=== PATIENT | female | born 1990 | race African-American/Black ===

== ENCOUNTER 2016-06-03 05:49 | Emergency (ER) | payer OTHER ==
[~2016-06-03] VITALS: Ht 162.6 cm; Wt 112.5 kg
[~2016-06-03 05:49] MED LIST: IBUPROFEN600 MG ORAL; KEFLEX500 MG ORAL; PHENAZOPYRIDIN100 MG ORAL
[2016-06-03 06:05] VITALS: BP 120/88
[2016-06-03] MEDS ORDERED: AMOXICILLIN500 MG ORAL (06:23)
[2016-06-03] MEDS ORDERED: HYDROCODON-ACE1 EA15 ORAL (06:23)
--- NOTE | 2016-06-03 06:23 | Emergency Room Report ---
History of Present Illness General Chief Complaint: Toothache Source: Patient Present Illness HPI This is a 25-year-old female presents with chief complaint of toothache. She cracked her tooth about a week ago. Now she has severe pain in the left lower jaw. Pain is 9/10. Throbbing in nature. Worse with eating or drinking. Orajel helps but only lasted about 15 minutes. No other complaint. No swelling. Allergies: Coded Allergies: No Known Allergies (Unverified , 11/28/11) Patient History Past Medical History: see triage record, old chart reviewed Past Surgical History: none Pertinent Family History: none Social History: Denies: smoking Last Menstrual Period: I HAVE AN IUD, NOTHING CURRENTLY Now: No : 3 Para: 1 Immunizations: other Reviewed Nursing Documentation: PMH: Agreed, PSxH: Agreed Nursing Documentation-PMH Past Medical History: No Stated History Review of Systems Eye: Denies: blurred vision, eye pain ENT: Denies: ear pain, nose congestion, throat swelling Respiratory: Denies: cough, shortness of breath Cardiovascular: Denies: chest pain, palpitations Gastrointestinal: Denies: abdominal pain, diarrhea, nausea, vomiting Musculoskeletal: Denies: back pain, joint pain Skin: Denies: rash Neurological: Denies: headache, numbness Endocrine: Denies: increased thirst, increased urine Hematologic/Lymphatic: Denies: easy bruising All Other Systems: negative except mentioned in HPI Physical Exam Vital Signs Date Time Temp Pulse Resp B/P Pulse Ox O2 Delivery O2 Flow Rate FiO2 06/03/16 05:56 78 18 123/87 98 Room Air 06/03/16 06:05 98.4 vitals normal Sp02 EP Interpretation: reviewed, normal General Appearance: well appearing, no apparent distress, alert Head: normocephalic, atraumatic Eyes: bilateral eye EOMI, bilateral eye PERRL ENT: hearing grossly normal, normal pharynx, other - Left lower wisdom tooth: About a third is missing. No abscess. Tenderness with outpatient. Neck: full range of motion, supple, no meningismus Respiratory: chest non-tender, lungs clear, normal breath sounds Cardiovascular #1: regular rate, rhythm, no murmur Gastrointestinal: normal bowel sounds, non tender, no mass, no organomegaly, no bruit, non-distended Musculoskeletal: back normal, gait/station normal, normal range of motion Psychiatric: mood/affect normal Skin: warm/dry Procedures Additional Procedure Procedure Narrative Procedure: Dental block Indication: Toothache Description: I injected about 3 mL of 1% lidocaine with epinephrine into the inferior alveolar nerve. Patient is good pain control. No complication. Medical Decision Making Diagnostic Impression: Primary Impression: Toothache ER Course Patient presents with toothache. She may need a root canal versus tooth extraction. No evidence of abscess that can be in the. We'll discharge home. Last Vital Signs Date Time Temp Pulse Resp B/P Pulse Ox O2 Delivery O2 Flow Rate FiO2 06/03/16 06:05 98.4 88 17 120/88 99 Room Air Status: improved Disposition: HOME, SELF-CARE Condition: Stable Scripts Hydrocodone/Acetaminophen 5-325* (HYDROCODONE/ACETAMINOPHEN 5-325*) 1 Each Tablet 1 TAB ORAL Q6H Y for For Pain, #20 TAB 0 Refills Prov: ZEB GEORGES M.D. 06/03/16 Amoxicillin* (AMOXIL*) 500 Mg Capsule 500 MG ORAL THREE TIMES A DAY, #21 CAP Prov: ZEB GEORGES M.D. 06/03/16 Referrals: [facility]ERR[facility] (PCP) Patient Instructions: Dental Pain Additional Instructions: Keep the appointment with a dentist. Return for increasing pain, fever, or swelling. ZEB GEORGES M.D. Jun 03, 2016 06:23
[2016-06-03 06:30] VITALS: BP 120/88
== END 2016-06-03 06:30 | disposition home or self-care (01) ==
LOC: EMR 06:13
DX: K08.89 Other specified disorders of teeth and supporting structures (principal)
CPT/HCPCS: 64450

== ENCOUNTER 2016-09-07 23:03 | Emergency (ER) | payer OTHER ==
[~2016-09-07] VITALS: Ht 160 cm; Wt 110.7 kg
[~2016-09-07 23:03] MED LIST changes: +AMOXICILLIN500 MG ORAL; +HYDROCODON-ACE1 EA15 ORAL
[2016-09-07] MEDS ORDERED: HYDROCODON-ACE1 EA15 ORAL (23:44)
[2016-09-07] MEDS ORDERED: AMOXICILLIN500 MG ORAL (23:44)
--- NOTE | 2016-09-07 23:44 | Emergency Room Report ---
History of Present Illness General Chief Complaint: Toothache Source: Patient Present Illness Allergies: Coded Allergies: No Known Allergies (Unverified , 11/28/11) Patient History Past Medical History: see triage record, old chart reviewed Past Surgical History: none Pertinent Family History: none Social History: Denies: smoking Last Menstrual Period: 3 days ago Now: No Immunizations: UTD Reviewed Nursing Documentation: PMH: Agreed, PSxH: Agreed Nursing Documentation-PMH Past Medical History: No Stated History Review of Systems Eye: Denies: blurred vision, eye pain ENT: Denies: ear pain, nose congestion, throat swelling Respiratory: Denies: cough, shortness of breath Cardiovascular: Denies: chest pain, palpitations Gastrointestinal: Denies: abdominal pain, diarrhea, nausea, vomiting Musculoskeletal: Denies: back pain, joint pain Skin: Denies: rash Neurological: Denies: headache, numbness Endocrine: Denies: increased thirst, increased urine Hematologic/Lymphatic: Denies: easy bruising All Other Systems: negative except mentioned in HPI Physical Exam Vital Signs Date Time Temp Pulse Resp B/P Pulse Ox O2 Delivery O2 Flow Rate FiO2 09/07/16 23:19 98.1 68 16 135/87 98 Room Air vitals normal Sp02 EP Interpretation: reviewed, normal General Appearance: well appearing, no apparent distress, alert Head: normocephalic, atraumatic Eyes: bilateral eye EOMI, bilateral eye PERRL ENT: hearing grossly normal, normal pharynx, other - dental caries. No abscess. no trismus Neck: full range of motion, supple, no meningismus Respiratory: chest non-tender, lungs clear, normal breath sounds Cardiovascular #1: regular rate, rhythm, no murmur Gastrointestinal: normal bowel sounds, non tender, no mass, no organomegaly, no bruit, non-distended Musculoskeletal: back normal, gait/station normal, normal range of motion Psychiatric: mood/affect normal Skin: warm/dry Medical Decision Making Diagnostic Impression: Primary Impression: Toothache Additional Impression: Infected dental caries Last Vital Signs Date Time Temp Pulse Resp B/P Pulse Ox O2 Delivery O2 Flow Rate FiO2 09/07/16 23:19 98.1 68 16 135/87 98 Room Air Status: improved Disposition: HOME, SELF-CARE Condition: Stable Scripts Hydrocodone/Acetaminophen 5-325* (HYDROCODONE/ACETAMINOPHEN 5-325*) 1 Each Tablet 1 TAB ORAL Q6H Y for For Pain, #20 TAB 0 Refills Prov: ZEB GEORGES M.D. 09/07/16 Amoxicillin* (AMOXIL*) 500 Mg Capsule 500 MG ORAL EVERY 8 HOURS, #21 CAP Prov: ZEB GEORGES M.D. 09/07/16 Patient Instructions: Dental Pain Additional Instructions: Keep your appointment with your dentist. Return if worse. ZEB GEORGES M.D. Sep 07, 2016 23:44
--- NOTE | 2016-09-07 23:47 | Emergency Room Report ---
History of Present Illness General Chief Complaint: Toothache Source: Patient Present Illness HPI Is a 25-year-old female with no significant past medical history. She presents with dental pain for the last few days. Pain mostly on the left side but now the right side. No fever chills but no nausea vomiting. She made an appointment with a dentist for next week. No other complaint. Over-the- counter medication not helping. Allergies: Coded Allergies: No Known Allergies (Unverified , 11/28/11) Patient History Past Medical History: see triage record, old chart reviewed Past Surgical History: none Pertinent Family History: none Social History: Denies: smoking Last Menstrual Period: 3 days ago Now: No Immunizations: other Reviewed Nursing Documentation: PMH: Agreed, PSxH: Agreed Nursing Documentation-PMH Past Medical History: No Stated History Review of Systems Eye: Denies: blurred vision, eye pain ENT: Denies: ear pain, nose congestion, throat swelling Respiratory: Denies: cough, shortness of breath Cardiovascular: Denies: chest pain, palpitations Gastrointestinal: Denies: abdominal pain, diarrhea, nausea, vomiting Musculoskeletal: Denies: back pain, joint pain Skin: Denies: rash Neurological: Denies: headache, numbness Endocrine: Denies: increased thirst, increased urine Hematologic/Lymphatic: Denies: easy bruising All Other Systems: negative except mentioned in HPI Physical Exam Vital Signs Date Time Temp Pulse Resp B/P Pulse Ox O2 Delivery O2 Flow Rate FiO2 09/07/16 23:19 98.1 68 16 135/87 98 Room Air vitals normal Sp02 EP Interpretation: reviewed, normal General Appearance: well appearing, no apparent distress, alert Head: normocephalic, atraumatic Eyes: bilateral eye EOMI, bilateral eye PERRL ENT: hearing grossly normal, normal pharynx, other - Poor dentition. The right and left lower wisdom teeth are rotted. Percussive tenderness mostly on the right. No abscess. Neck: full range of motion, supple, no meningismus Respiratory: chest non-tender, lungs clear, normal breath sounds Cardiovascular #1: regular rate, rhythm, no murmur Gastrointestinal: normal bowel sounds, non tender, no mass, no organomegaly, no bruit, non-distended Musculoskeletal: back normal, gait/station normal, normal range of motion Psychiatric: mood/affect normal Skin: warm/dry Procedures Additional Procedure Procedure Narrative Procedure: Dental block Indication: Dental pain Description: I injected 2 mL of 1% lidocaine with epinephrine. I injected the inferior alveolar ridge. Has had good pain relief. Complication. Patient tolerated procedure without any issue. Medical Decision Making Diagnostic Impression: Primary Impression: Toothache Additional Impression: Infected dental caries ER Course Patient with dental infection. We'll discharge home. No evidence of abscess that can be I&D. Last Vital Signs Date Time Temp Pulse Resp B/P Pulse Ox O2 Delivery O2 Flow Rate FiO2 09/07/16 23:19 98.1 68 16 135/87 98 Room Air Disposition: HOME, SELF-CARE Condition: Stable Scripts Hydrocodone/Acetaminophen 5-325* (HYDROCODONE/ACETAMINOPHEN 5-325*) 1 Each Tablet 1 TAB ORAL Q6H Y for For Pain, #20 TAB 0 Refills Prov: ZEB GEORGES M.D. 09/07/16 Amoxicillin* (AMOXIL*) 500 Mg Capsule 500 MG ORAL EVERY 8 HOURS, #21 CAP Prov: ZEB GEORGES M.D. 09/07/16 Patient Instructions: Dental Pain Additional Instructions: Keep your appointment with your dentist. Return if worse. ZEB GEORGES M.D. Sep 07, 2016 23:47
[2016-09-07 23:53] VITALS: BP 135/87
[2016-09-07 23:55] VITALS: BP 1/1
== END 2016-09-07 23:59 | disposition home or self-care (01) ==
LOC: EMR 23:56
DX: K02.9 Dental caries, unspecified (principal)
CPT/HCPCS: 99284

== ENCOUNTER 2016-10-06 08:47 | Emergency (ER) | payer OTHER ==
[~2016-10-06] VITALS: Ht 162.6 cm; Wt 117.9 kg
[2016-10-06 09:15] VITALS: BP 117/80
[2016-10-06] MEDS ORDERED: CLOTRIMAZOLE15 GM TOPIC (09:54)
[2016-10-06] MEDS ORDERED: DIPHENHYDRAMINE25 M1 ORAL (09:54)
[2016-10-06 10:07] VITALS: BP 117/80
--- NOTE | 2016-10-06 15:00 | Emergency Room Report ---
History of Present Illness General Chief Complaint: Skin Rash/Abscess Source: Patient Present Illness HPI 25-year-old female presents ED complaining of rash x3 days. Patient notes multiple itchy bumps all of her body. Denies any pain. Denies fevers or chills. Denies any known food or drug allergies. Denies any sick contacts or recent travel. No other aggravating relieving factors. Denies any associated symptoms Allergies: Coded Allergies: No Known Allergies (Unverified , 11/28/11) Patient History Past Medical History: none Past Surgical History: none Pertinent Family History: none Social History: Denies: alcohol use, drug use, smoking Now: No Immunizations: UTD Reviewed Nursing Documentation: PMH: Agreed, PSxH: Agreed Nursing Documentation-PMH Past Medical History: No Stated History Review of Systems All Other Systems: negative except mentioned in HPI Physical Exam Vital Signs Date Time Temp Pulse Resp B/P Pulse Ox O2 Delivery O2 Flow Rate FiO2 10/06/16 09:04 98.1 70 20 117/80 100 Room Air Sp02 EP Interpretation: reviewed, normal General Appearance: no apparent distress, alert, GCS 15, non-toxic, obese Head: normocephalic Eyes: bilateral eye PERRL, bilateral eye normal inspection ENT: normal ENT inspection Neck: normal inspection Respiratory: normal inspection Cardiovascular #1: normal inspection Gastrointestinal: normal inspection Rectal: deferred Genitourinary: no CVA tenderness Musculoskeletal: normal inspection Neurologic: alert, oriented x3, responsive, motor strength/tone normal, sensory intact, speech normal Psychiatric: judgement/insight normal, memory normal, mood/affect normal, no suicidal/homicidal ideation Skin: rash - multiple round lesions with raised edges, central clearing. nonerythematous. no discharge Lymphatic: normal inspection Medical Decision Making Diagnostic Impression: Primary Impression: Rash and other nonspecific skin eruption ER Course Hospital Course 25-year-old female presents to ED with rash to body Differential diagnoses include: Cellulitis, dermatitis, insect bite, abscess Clinical course Patient placed on stretcher. After initial history, physical exam reveals a young female in no acute distress. On exam there are multiple macular circular lesions on the body. Raised edges with central clearing. Consistent with ringworm Diagnosis - rash stable and discharged to home with prescription for clotrimazole, benedryl. Instructed to followup with PMD. Instructed return to ED if symptoms recur or worsen Last Vital Signs Date Time Temp Pulse Resp B/P Pulse Ox O2 Delivery O2 Flow Rate FiO2 10/06/16 10:07 98.1 78 20 117/80 100 Room Air Status: improved Disposition: HOME, SELF-CARE Condition: Stable Scripts Clotrimazole* (LOTRIMIN*) 15 Gm Cream..g. 1 APPLIC TOPIC TWICE A DAY, #15 GM Prov: MYNOR JHAVERI M.D. 10/06/16 Diphenhydramine Hcl* (DIPHENHYDRAMINE HCL*) 25 Mg Capsule 25 MG ORAL Q6H Y for Itching, #30 CAP 0 Refills Prov: MYNOR JHAVERI M.D. 10/06/16 Referrals: [facility],REFERRIN (PCP) Patient Instructions: Body Ringworm MYNOR JHAVERI M.D. Oct 06, 2016 15:00
== END 2016-10-06 10:09 | disposition home or self-care (01) ==
LOC: EMR 09:16
DX: R21 Rash and other nonspecific skin eruption (principal)
CPT/HCPCS: 99284

== ENCOUNTER 2016-10-14 02:41 | Emergency (ER) | payer OTHER ==
[~2016-10-14] VITALS: Ht 162.6 cm; Wt 115.7 kg
[~2016-10-14 02:41] MED LIST changes: +CLOTRIMAZOLE15 GM TOPIC; +DIPHENHYDRAMINE25 M1 ORAL
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
[2016-10-14] MEDS ORDERED: IBUPROFEN600 MG ORAL (03:40)
[2016-10-14 03:43] VITALS: BP 117/81
[2016-10-14 03:45] VITALS: BP 120/84
--- NOTE | 2016-10-14 08:29 | Diagnostic Imaging Report ---
Indications: Right knee pain Technique: 3 views of the right knee Findings: Comparison: None No fracture, dislocation, lytic destruction, periosteal reaction, joint space widening or effusion, surrounding soft tissue abnormality, or other acute changes demonstrated. No deformity, alignment abnormality, arthritic change, soft tissue calcification, or other chronic changes demonstrated. IMPRESSION: Negative right knee series.
[2016-10-14] MEDS ORDERED: NORCO 5-325 TA1 EAC1 ORAL (20:23)
== END 2016-10-14 03:43 | disposition home or self-care (01) ==
LOC: EMR 03:15
DX: S83.91XA Sprain of unspecified site of right knee, initial encounter (principal); Y04.0XXA Assault by unarmed brawl or fight, initial encounter; Y92.89 Other specified places as the place of occurrence of the external cause
CPT/HCPCS: 99283

== ENCOUNTER 2016-10-14 18:45 | Emergency (ER) | payer OTHER ==
[~2016-10-14] VITALS: Ht 162.6 cm; Wt 115.7 kg
[2016-10-14 19:45] VITALS: BP 118/71
[2016-10-14] MEDS ORDERED: NORCO 5-325 TA1 EAC1 ORAL (20:23)
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
[2016-10-14 20:45] VITALS: BP 125/85
== END 2016-10-14 20:45 | disposition home or self-care (01) ==
LOC: EMR 19:50
DX: M25.561 Pain in right knee (principal); M79.89 Other specified soft tissue disorders
CPT/HCPCS: 99283

== ENCOUNTER 2017-10-06 15:53 | Emergency (ER) | payer OTHER ==
[~2017-10-06] VITALS: Ht 162.6 cm; Wt 120.7 kg
[~2017-10-06 15:53] MED LIST changes: +NORCO 5-325 TA1 EAC1 ORAL
[2017-10-06] MEDS ORDERED: NKM (16:01)
[2017-10-06 16:07] VITALS: BP 113/64
[2017-10-06] MEDS ORDERED: TYLENOL EXTRA500 MG ORAL (16:25)
--- NOTE | 2017-10-06 16:25 | Emergency Room Report ---
History of Present Illness General Chief Complaint: Toothache Source: Patient Present Illness HPI 26-year-old female patient presents ER complaining of tooth pain for the past few days. patient is 32 weeks . Reports that she was seen by dentist yesterday who referred her to a oral surgeon, states she has appointment with oral surgeon tomorrow. States that the dentist did not prescribe her any antibiotics or pain medications. patient states she has not taken anything for pain. Denies fever, chest pain, shortness of breath, drainage. Denies hearing loss, vertigo, other acute symptoms. reports she was able to contact her EXTRACTION OPERATOR who stated that it was okay for her to take antibiotics. denies dysuria, hematuria. Denies abdominal pain. Allergies: Coded Allergies: No Known Allergies (Unverified , 10/14/16) Patient History Past Medical History: see triage record Now: Yes : 4 Para: 1 Reviewed Nursing Documentation: PMH: Agreed; PSxH: Agreed Nursing Documentation-PMH Past Medical History: No Stated History Review of Systems All Other Systems: negative except mentioned in HPI Physical Exam Vital Signs Date Time Temp Pulse Resp B/P (MAP) Pulse Ox O2 Delivery O2 Flow Rate FiO2 10/06/17 15:58 98.6 98 20 113/64 97 Room Air 98.6 Sp02 EP Interpretation: reviewed, normal General Appearance: well appearing, no apparent distress, alert, GCS 15, non- toxic Head: normocephalic, atraumatic, other - no facial swelling Eyes: bilateral eye normal inspection, bilateral eye PERRL ENT: hearing grossly normal, normal pharynx, no angioedema, normal voice, TMs + canals normal, uvula midline, moist mucus membranes, other - tooth #32 broken , no erythema or edema, no pus, no gum swelling, no drainage; multiple caries noted Neck: full range of motion Respiratory: lungs clear, normal breath sounds, no rhonchi, no respiratory distress, no accessory muscle use, no wheezing, speaking full sentences Cardiovascular #1: regular rate, rhythm, no edema Neurologic: alert, oriented x3, responsive, motor strength/tone normal, sensory intact Psychiatric: mood/affect normal Skin: no rash Medical Decision Making PA Attestation Dr. Ellington is my supervising Physician whom patient management has been discussed with. Diagnostic Impression: Primary Impression: Toothache ER Course Pt. presents to the ED c/o dental pain.. Ddx considered but are not limited to cellulitis, abscess, dental caries, gingivitis. Does not require imaging at this time. Vital signs: are WNL, pt. is afebrile ED INTERVENTIONS: Patient is 32 weeks , states she contacted her EXTRACTION OPERATOR, should be reported provider by EXTRACTION OPERATOR. States that she is appropriate for Tylenol for pain and postprocedure antibiotics. Nontoxic appearing, speaking full sentences, no active draining, mild edema, no trismus or vision changes. bilateral ears clear, no erythema or edema, no effusion. No visible abscess requiring drainage at this time. Physical exam shows tooth #32 broken, no erythema or edema, no signs of infection requiring antibiotics at this time. Informed patient because she is she is only able to take Tylenol for pain symptoms. Will provide prescription for Tylenol. Instructed to follow-up with oral surgeon tomorrow at scheduled appointment. follow-up with EXTRACTION OPERATOR. F/u with PCP and dentist for further treatment. DISCHARGE: -Rx provided for Tylenol At this time pt. is stable for d/c to home. Patient is resting comfortably, in no acute distress, nontoxic appearing, talking and smiling without difficulty. Will provide printed patient care instructions and any necessary prescriptions. Care plan and follow up instructions have been discussed with the patient prior to discharge. Patient instructed to follow-up with primary care provider in 2 - 3 days. Followup with dentist. Patient questions asked and answered. Patient reports understanding and agreement to treatment plan. ER precautions given. Patient instructed to return to ER immediately for any new or worsening of symptoms including but not limited to fever, worsening of pain symptoms, worsening of erythema, red streaking. - Please note that this Emergency Department Report was dictated using [employer] technology software, occasionally this can lead to erroneous entry secondary to interpretation by the dictation equipment. Last Vital Signs Date Time Temp Pulse Resp B/P (MAP) Pulse Ox O2 Delivery O2 Flow Rate FiO2 10/06/17 16:07 98.6 84 20 113/64 97 Room Air 98.6 Disposition: HOME, SELF-CARE Condition: Stable Scripts Acetaminophen* (TYLENOL EXTRA STRENGTH*) 500 Mg Tablet 500 MG ORAL Q8H PRN for Prn Headache/Temp > 101, #30 TAB 0 Refills Prov: LuisaAyo 10/06/17 Patient Instructions: Dental Pain Additional Instructions: Follow-up with oral surgeon tomorrow at scheduled appointment. Follow-up with EXTRACTION OPERATOR. F/u with PCP and dentist for further treatment. Followup with primary care provider in 3 -5 days. Take medications as directed. Do not take any medications for pain besides Tylenol Patient questions asked and answered. ER precautions given, patient instructed to return to ER immediately for any new or worsening of symptoms. Ayo Moran Oct 06, 2017 16:25
[2017-10-06 16:38] VITALS: BP 113/64
== END 2017-10-06 16:38 | disposition home or self-care (01) ==
LOC: EMR 16:29
DX: K08.89 Other specified disorders of teeth and supporting structures (principal); S02.5XXA Fracture of tooth (traumatic), initial encounter for closed fracture; X58.XXXA Exposure to other specified factors, initial encounter; Y92.9 Unspecified place or not applicable
CPT/HCPCS: 99283

== ENCOUNTER 2019-01-11 13:47 | Emergency (ER) | payer OTHER ==
[~2019-01-11] VITALS: Ht 163.8 cm; Wt 112.5 kg
[~2019-01-11 13:47] MED LIST changes: +NKM; +TYLENOL EXTRA500 MG ORAL
[2019-01-11 13:50] VITALS: BP 135/93
--- NOTE | 2019-01-11 13:50 | NUR ---
ED Nurse Note: walked in to ED due to headache since last night. pt has hx of migraine, unable to eat proper meal for last 3 days. pt also stated that she went to [employer] yesterday. AAO x4. respirations even and non-labored noted. will wait for the further order.
--- NOTE | 2019-01-11 14:14 | Emergency Room Report ---
History of Present Illness General Chief Complaint: Headache Source: Patient Present Illness HPI 28-year-old female with history of migraine headaches without aura here complaining of new onset of migraine started this morning. Patient complains of unilateral headache with photophobia and nausea. Has not taken medication for symptom relief. Reports that she smoked hookah last night and aspirin she started feeling her migraine headache was starting. Denies history of diabetes , head trauma, hypertension. Denies chest pain, shortness of breath, palpitation, no other associated symptoms. Has not taken medication for symptom relief. Patient also reports that due to financial reasons she is not really eating well. Denies syncope and loss of consciousness. Patient sitting comfortably with stable vital signs. Allergies: Coded Allergies: No Known Allergies (Unverified , 10/14/16) Patient History Past Medical History: see triage record Past Surgical History: unable to obtain Pertinent Family History: none Last Menstrual Period: 01/04/19 Now: No Immunizations: UTD Reviewed Nursing Documentation: PMH: Agreed; PSxH: Agreed Nursing Documentation-PMH Past Medical History: No Stated History Review of Systems All Other Systems: negative except mentioned in HPI Physical Exam Vital Signs Date Time Temp Pulse Resp B/P (MAP) Pulse Ox O2 Delivery O2 Flow Rate FiO2 01/11/19 13:50 97.9 70 18 135/93 (107) 100 Room Air Sp02 EP Interpretation: reviewed, normal General Appearance: no apparent distress, alert, GCS 15, non-toxic Head: normocephalic, atraumatic Eyes: bilateral eye normal inspection, bilateral eye PERRL ENT: hearing grossly normal, normal pharynx, no angioedema, normal voice Neck: full range of motion, supple/symm/no masses Respiratory: chest non-tender, lungs clear, normal breath sounds, no wheezing, speaking full sentences Cardiovascular #1: regular rate, rhythm, no edema, no murmur Cardiovascular #2: 2+ radial (R), 2+ radial (L) Gastrointestinal: normal bowel sounds, non tender, soft, non-distended, no guarding, no rebound Rectal: deferred Genitourinary: no CVA tenderness Musculoskeletal: back normal, gait/station normal, normal range of motion, non- tender, no calf tenderness Neurologic: alert, oriented x3, responsive, motor strength/tone normal, sensory intact, speech normal Psychiatric: judgement/insight normal, memory normal, mood/affect normal, no suicidal/homicidal ideation Skin: no rash Lymphatic: no adenopathy Medical Decision Making PA Attestation All diagnoses and treatment plans were reviewed and discussed with my supervising physician Dr. Nguyen Diagnostic Impression: Primary Impression: Migraine headache without aura ER Course 28-year-old female with history of migraine headaches without aura here complaining of new onset of migraine started this morning. Patient complains of unilateral headache with photophobia and nausea. Has not taken medication for symptom relief. Reports that she smoked hookah last night and aspirin she started feeling her migraine headache was starting. Denies history of diabetes , head trauma, hypertension. Denies chest pain, shortness of breath, palpitation, no other associated symptoms. Has not taken medication for symptom relief. Patient also reports that due to financial reasons she is not really eating well. Denies syncope and loss of consciousness. Patient sitting comfortably with stable vital signs. Ddx considered but are not limited to: Migraine headache with aura, migraine headache without aura, tension headache, cluster headache, TBI, subarachnoid hemorrhage Vital signs: are WNL, pt. is afebrile H&PE are most consistent with: Migraine headache without aura ORDERS: Excedrin, Motrin, Zofran ER intervention: Toradol, patient was also felt DISCHARGE: At this time pt. is stable for d/c to home. Will provide printed patient care instructions, and any necessary prescriptions. Care plan and follow up instructions have been discussed with the patient prior to discharge. Patient called her primary care provider and neurologist for further assessment and she has previous history of migraine headache. If worsening symptoms return to the emergency room. Last Vital Signs Date Time Temp Pulse Resp B/P (MAP) Pulse Ox O2 Delivery O2 Flow Rate FiO2 01/11/19 13:50 97.9 70 18 135/93 (107) 100 Room Air Disposition: HOME, SELF-CARE Condition: Stable Scripts Ondansetron (Zofran) 4 Mg Tablet 4 MG ORAL Q6H PRN for Nausea & Vomiting, #10 TAB Prov: Elyssa Patel 01/11/19 Ibuprofen* (MOTRIN*) 600 Mg Tablet 600 MG ORAL Q8H PRN for For Pain, #21 TAB 0 Refills Prov: Elyssa Patel 01/11/19 Aspirin/Acetaminophen/Caffeine (EXCEDRIN MIGRAINE CAPLET) 1 Each Tablet 1 EACH PO BID, #20 TAB Prov: Elyssa Patel 01/11/19 Patient Instructions: Migraine Headache Additional Instructions: Medication as directed, follow-up with a primary care provider and neurologist for better assessment of migraine headache. Avoid spicy and sweet food. Avoid exposure to smoking as it may induce your headache. If worsening symptoms return to the emergency room Elyssa Patel Jan 11, 2019 14:14
[2019-01-11] MEDS ORDERED: Ketorolac 30mg Inj IM ONE (14:15)
[2019-01-11] MEDS ORDERED: IBUPROFEN600 MG ORAL (14:16)
[2019-01-11] MEDS ORDERED: ZOFRAN4 M1 ORAL (14:16)
[2019-01-11] MEDS ORDERED: EXCEDRIN MIGRA1 EAC1 PO (14:16)
--- NOTE | 2019-01-11 14:20 | NUR ---
ED Nurse Note: [employer] juices provide.
[2019-01-11 14:52] VITALS: BP 127/88
--- NOTE | 2019-01-11 14:54 | NUR ---
ER DISCHARGE NOTE: Patient is cleared to be discharged per ERMD, pt is aox4, on room air, with stable vital signs. pt was given dc and prescription instructions, pt was able to verbalize understanding, pt id band removed without complications. pt is able to ambulate with steady gait. pt took all belongings.
== END 2019-01-11 14:54 | disposition home or self-care (01) ==
LOC: EMR 14:41
DX: G43.909 Migraine, unspecified, not intractable, without status migrainosus (principal)
CPT/HCPCS: 96372; J1885; Z7502; 99283